=== PATIENT | female | born 1980 | race Hispanic/Latino ===

== ENCOUNTER 2017-03-27 09:38 | Emergency (ER) | payer SELFPAY ==
[2017-03-27] MEDS ORDERED: NACL 0.9% 1,000 ML IR ONE (11:10)
== END 2017-03-27 09:39 | disposition left against medical advice (07) ==
LOC: EDBD → ED 09:38
DX: M79.604 Pain in right leg (principal); Z53.21 Procedure and treatment not carried out due to patient leaving prior to being seen by health care provider

== ENCOUNTER 2017-08-13 01:53 | Emergency (ER) | payer MEDICARE, MEDICAID ==
--- NOTE | 2017-08-13 03:09 | XRay Report ---
FINAL REPORT EXAM: XR CHEST ROUTINE 2V HISTORY: cough TECHNIQUE: PA and lateral views of the chest were obtained. There are no previous studies available for comparison. FINDINGS: Heart size mediastinum appear normal. The lungs are clear. Pleural fluid is not seen. The bones soft tissues well maintained. IMPRESSION: No active chest disease.
[2017-08-13 08:09] VITALS: BP 106/82
[2017-08-13] MEDS ORDERED: DUONEB *Not for PRN Use IH ONE (08:11)
[2017-08-13] MEDS ORDERED: DELTASONE PO ONE (08:11)
--- NOTE | 2017-08-13 08:12 | Emergency Department Report ---
Minor Respiratory - HPI Chief Complaint: Upper Respiratory Infection Stated Complaint: URI Time Seen by Provider: 08/13/17 07:18 Duration: 3 Days Pain Location: Chest, Other (cough, smoker, states stopped 2 w ago; smells of smoke) Severity: moderate Minor Respiratory: Yes Able to Tolerate Fluids (asking for food), Yes Cough (tet ), No Rhinorrhea, No Sore Throat, No Ear Pain, No Sick Contacts, No Hemoptysis, No Chest Pain, No Shortness of Breath, No Fever Other History: non compliant ED Review of Systems ROS: Stated complaint: URI Other details as noted in HPI Comment: All other systems reviewed and negative Constitutional: denies: fever Respiratory: cough (non productive; no fever) Musculoskeletal: other (ac rle pain ) Other: repeat. asking for pain meds- then states I have a lot of allergies asking for food tray informed me her father will come and get her when ready to go refuses RT tx ED Past Medical Hx - Past Medical History Previous Medical History?: No Hx Seizures: Yes Hx Asthma: Yes Additional medical history: adhd, bipolar, anxiety, copd - Surgical History Past Surgical History?: Yes Additional Surgical History: right leg - Social History Smoking Status: Current Every Day Smoker Substance Use Type: None - Medications Home Medications: Home Medications Medication Instructions Recorded Confirmed Last Taken Type ALBUTEROL Inhaler [ProAir HFA 2 puff IH QID PRN #1 inhalation 08/13/17 Unknown Rx Inhaler] predniSONE [Deltasone] 20 mg PO DAILY #5 tablet 08/13/17 Unknown Rx Minor Respiratory Exam - Exam General: Vital signs noted. No distress. Alert and acting appropriately. HEENT: Yes Moist Mucous Membranes, No Pharyngeal Erythema, No Pharyngeal Exudates, No Rhinorrhea, No Conjuctival Injection, No Frontal Tenderness, No Maxillary Tenderness Ear: Neither TM Bulge, Neither TM Erythema, Neither EAC Pain, Neither EAC Discharge Neck: Yes Supple, No Adenopathy Lungs: Yes Good Air Exchange, Yes Wheezes (b upper; no cough heard; denies sputum; denies fever; non toxic; non ill appearing; no inc wob;ambulating up and down [place] in fast track wo diff breathing. ), No Ronchi, No Stridor, No Cough, No Labored Respirations, No Retractions, No Use of Accessory Muscles, No Other Abnormal Lung Sounds Heart: Yes Regular (hr 90 on exam ), No Murmur Abdomen: Yes Normal Bowel Sounds, No Tenderness, No Peritoneal Signs Skin: No Rash, No Edema Neurologic: Alert and oriented, no deficits. Musculoskeletal: Unremarkable. co rle pain no fall or trauma discoloration of chronic venous disease below knee no open area, ulceration or lesion. dp/pt plus 2 b with rapid cap refill no swelling neg homans per med rec this is not a new complaint. ED Course Vital Signs 08/13/17 08/13/17 02:02 08:08 Temperature 98.4 F Pulse Rate 100 H 79 Respiratory 17 18 Rate Blood Pressure 120/84 Blood Pressure 106/82 [Left] O2 Sat by Pulse 99 96 Oximetry - Reevaluation(s) Reevaluation #1: 08/13/17 09:01 to er w cough wants pain meds for rle points out allergies told me she has ride home refuses rt tx on geodan and ativan at home tet 08/13/17 09:23 pt angry not getting pain meds will not stay in her room as it turns out she did not get her dad to ride her home now she wants medicaid transport discussed w pt that she has no active infection but her s/s are coming from copd and tet. she has been advised to stop smoking and see pulmonology per her pcp for follow up since she refuses her rt tx. when given her prednisone and inhaler on dc she says I have plenty of this at home educated pt again on her disease process and need for these meds; not antibiotic for she has no fever or purulent sputum RN has too tried to educate patient. ED Medical Decision Making - Medical Decision Making see note - Differential Diagnosis copd ae w or wo urti Critical care attestation.: If time is entered above; I have spent that time in minutes in the direct care of this critically ill patient, excluding procedure time. ED Disposition Clinical Impression: Toxic effect of tobacco, COPD (chronic obstructive pulmonary disease), Patient non adherence Disposition: - TO HOME OR SELFCARE Is pt being admited?: No Does the pt Need Aspirin: No Condition: Stable Instructions: Chronic Obstructive Pulmonary Disease (ED) Additional Instructions: stop smoking follow up with pulmonology; rubin since you will not take resp tx follow up with Dr Joshi for your leg pain xray today revealed no infection you were given prednisone for your pain you refused your breathing treatment I'd recommend seeing Dr Joshi Tuesday Prescriptions: ALBUTEROL Inhaler [ProAir HFA Inhaler] 2 puff IH QID PRN #1 inhalation PRN Reason: Wheezing predniSONE [Deltasone] 20 mg PO DAILY #5 tablet Referrals: AMAN JOSHI MD [Primary Care Provider] - 3-5 Days Time of Disposition: 09:02
[2017-08-13] MEDS ORDERED: DELTASONE ONE (08:23)
== END 2017-08-13 09:14 | disposition home or self-care (01) ==
LOC: ED 01:53
DX: J44.9 Chronic obstructive pulmonary disease, unspecified (principal); F31.9 Bipolar disorder, unspecified; F41.9 Anxiety disorder, unspecified; F17.200 Nicotine dependence, unspecified, uncomplicated; R56.9 Unspecified convulsions; Z88.8 Allergy status to other drugs, medicaments and biological substances; Z88.6 Allergy status to analgesic agent
CPT/HCPCS: 71020; 99283; J7512

== ENCOUNTER 2018-05-04 09:38 | Emergency (ER) | payer MEDICARE, MEDICAID ==
[2018-05-04 10:19] VITALS: BP 121/85
[2018-05-04 12:01] LABS: HCG Qualitative,Urine Negative (Negative)
[2018-05-04 12:02] LABS: Bacteria,Urine 2+ /HPF (Negative); Bilirubin,Urine NEG (Negative); Blood,Urine NEG (Negative); Color,Urine Colorless (Yellow); Protein,Urine <15 mg/dL mg/dL (Negative); Urobilinogen,Urine < 2.0 mg/dL (<2.0)
[2018-05-04] MEDS ORDERED: ANTIVERT PO ONE (13:30)
[2018-05-04] MEDS ORDERED: BENTYL PO ONE (13:31)
[2018-05-04] MEDS ORDERED: LEVAQUIN PO ONE (13:31)
--- NOTE | 2018-05-04 13:37 | Emergency Department Report ---
ED General Adult HPI - General Chief complaint: Dizziness Stated complaint: DIZZY Time Seen by Provider: 05/04/18 13:25 Source: patient Mode of arrival: Ambulatory Limitations: No Limitations - History of Present Illness Initial comments: Patient presents to the emergency department with complaint of dizziness. The patient states any movement of her head causes the dizziness to get worse. Patient states she does not have dizziness when she is sitting still. Patient also complains of burning with urination and states she was recently told she had a urinary tract infection but she denies given a prescription for it. Patient denies headache, chest pain, abdominal pain. No other associated symptoms. Of note the patient states she was seen at [facility] yesterday and given fluids for her dizziness. Patient denies a headache , weakness, slurred speech, facial droop, vaginal discharge Radiation: non-radiation Severity scale (0 -10): 2 Quality: burning Consistency: constant Improves with: none Worsens with: none Associated Symptoms: denies other symptoms Treatments Prior to Arrival: none - Related Data Previous Rx's Medication Instructions Recorded Last Taken Type ALBUTEROL Inhaler [ProAir HFA 2 puff IH QID PRN #1 inhalation 08/13/17 Unknown Rx Inhaler] predniSONE [Deltasone] 20 mg PO DAILY #5 tablet 08/13/17 Unknown Rx Ciprofloxacin HCl [Cipro] 500 mg PO BID #14 tablet 05/04/18 Unknown Rx Dicyclomine [Bentyl] 20 mg PO QID PRN #20 tablet 05/04/18 Unknown Rx Meclizine [Antivert] 25 mg PO TID PRN #20 tablet 05/04/18 Unknown Rx Allergies Allergy/AdvReac Type Severity Reaction Status Date / Time aspirin Allergy Anaphylaxis Verified 08/13/17 02:08 clindamycin Allergy Anaphylaxis Verified 08/13/17 02:08 diazepam [From Valium] Allergy Anaphylaxis Verified 08/13/17 02:08 haloperidol [From Haldol] Allergy Anaphylaxis Verified 08/13/17 02:08 ibuprofen [From Motrin] Allergy Anaphylaxis Verified 08/13/17 02:08 ketorolac [From Toradol] Allergy Itching Verified 08/13/17 02:08 lithium Allergy Anaphylaxis Verified 08/13/17 02:08 tramadol Allergy Anaphylaxis Verified 08/13/17 02:08 vancomycin Allergy Anaphylaxis Verified 08/13/17 02:06 ED Review of Systems ROS: Stated complaint: DIZZY Other details as noted in HPI Constitutional: denies: chills, fever Eyes: denies: eye pain, eye discharge, vision change ENT: denies: ear pain, throat pain Respiratory: denies: cough, shortness of breath, wheezing Cardiovascular: denies: chest pain, palpitations Endocrine: no symptoms reported Gastrointestinal: abdominal pain. denies: nausea, diarrhea Genitourinary: dysuria. denies: urgency, discharge Musculoskeletal: denies: back pain, joint swelling, arthralgia Skin: denies: rash, lesions Neurological: vertigo. denies: headache, weakness, paresthesias Psychiatric: denies: anxiety, depression Hematological/Lymphatic: denies: easy bleeding, easy bruising ED Past Medical Hx - Past Medical History Previous Medical History?: Yes Hx Seizures: Yes Hx Asthma: Yes Additional medical history: adhd, bipolar, anxiety, copd - Surgical History Past Surgical History?: Yes Additional Surgical History: right leg - Social History Smoking Status: Current Every Day Smoker Substance Use Type: None - Medications Home Medications: Home Medications Medication Instructions Recorded Confirmed Last Taken Type ALBUTEROL Inhaler [ProAir HFA 2 puff IH QID PRN #1 inhalation 08/13/17 Unknown Rx Inhaler] predniSONE [Deltasone] 20 mg PO DAILY #5 tablet 08/13/17 Unknown Rx Ciprofloxacin HCl [Cipro] 500 mg PO BID #14 tablet 05/04/18 Unknown Rx Dicyclomine [Bentyl] 20 mg PO QID PRN #20 tablet 05/04/18 Unknown Rx Meclizine [Antivert] 25 mg PO TID PRN #20 tablet 05/04/18 Unknown Rx ED Physical Exam - General Limitations: No Limitations General appearance: alert, in no apparent distress - Head Head exam: Present: atraumatic, normocephalic - Eye Eye exam: Present: normal appearance, PERRL, EOMI - ENT ENT exam: Present: mucous membranes moist - Neck Neck exam: Present: normal inspection - Respiratory Respiratory exam: Present: normal lung sounds bilaterally. Absent: respiratory distress, wheezes, rales, rhonchi - Cardiovascular Cardiovascular Exam: Present: regular rate, normal rhythm. Absent: systolic murmur, diastolic murmur, rubs, gallop - GI/Abdominal GI/Abdominal exam: Present: soft, normal bowel sounds. Absent: distended, tenderness - Extremities Exam Extremities exam: Present: normal inspection - Back Exam Back exam: Present: normal inspection - Neurological Exam Neurological exam: Present: alert, oriented X3, CN II-XII intact, other (able to re-create symptoms with rapid eye movement and head movement ). Absent: motor sensory deficit - Psychiatric Psychiatric exam: Present: normal affect, normal mood - Skin Skin exam: Present: warm, dry, intact, normal color. Absent: rash ED Course Vital Signs 05/04/18 10:15 Temperature 98.4 F Pulse Rate 81 Respiratory 20 Rate Blood Pressure 121/85 O2 Sat by Pulse 97 Oximetry Critical care attestation.: If time is entered above; I have spent that time in minutes in the direct care of this critically ill patient, excluding procedure time. ED Disposition Clinical Impression: Vertigo Disposition: DC-01 TO HOME OR SELFCARE Is pt being admited?: No Does the pt Need Aspirin: No Condition: Stable Instructions: Dysuria (ED), Vertigo (ED) Additional Instructions: return if worse Prescriptions: Ciprofloxacin HCl [Cipro] 500 mg PO BID #14 tablet Dicyclomine [Bentyl] 20 mg PO QID PRN #20 tablet PRN Reason: pain Meclizine [Antivert] 25 mg PO TID PRN #20 tablet PRN Reason: Vertigo Referrals: PRIMARY CARE,MD [Primary Care Provider] - 3-5 Days [facility] [Provider Group] - 3-5 Days [facility] [Outside] - 3-5 Days
== END 2018-05-04 13:54 | disposition home or self-care (01) ==
LOC: ED 09:38
DX: R42 Dizziness and giddiness (principal); R30.0 Dysuria; J45.909 Unspecified asthma, uncomplicated; F31.9 Bipolar disorder, unspecified; J44.9 Chronic obstructive pulmonary disease, unspecified; F17.200 Nicotine dependence, unspecified, uncomplicated; Z88.6 Allergy status to analgesic agent; Z88.1 Allergy status to other antibiotic agents; Z88.8 Allergy status to other drugs, medicaments and biological substances
CPT/HCPCS: 81001; 81025